=== PATIENT | male | born 1965 | race Two or more races ===

== ENCOUNTER 2024-09-17 12:19 | Day surgery (SDC) | payer OTHER ==
[2024-09-15 08:59] VITALS: BP 155/62
[2024-09-15 09:29] LABS: HEMATOCRIT 42.5 % (39.0-48.0); HEMOGLOBIN 14.8 g/dL (13-16.00); MEAN CELL VOLUME 88.4 fL (80.0-100.00); MEAN CORPUSCULAR HEMOGLOBIN 30.8 pg (27.00-32.0); MEAN CORPUSCULAR HGB CONC 34.8 g/dl (32.0-36.0); PLATELET COUNT 252 K/uL (150-450); RED BLOOD COUNT 4.81 M/uL (4.00-6.00); RED CELL DISTRIBUTION WIDTH 13.4 % (11.5-14.5)
[2024-09-15 09:42] LABS: PH,URINE 6.5 (5.0-8.0); URINE APPEARANCE Clear; URINE BILIRRUBIN Negative (NEGATIVE); URINE BLOOD Negative; URINE COLOR Yellow; URINE GLUCOSE Negative (NEGATIVE); URINE KETONE Negative (NEGATIVE); URINE LEUKOCYTE Negative; URINE NITRATE Negative; URINE PROTEIN Negative (NEGATIVE); URINE UROBILINOGEN 0.2 E.U./dl
[2024-09-15 09:46] LABS: URINE BACTERIA 14.6 uL (0.0-1933); URINE WBC 3.4 uL (0.0-23.2)
[2024-09-15 09:58] LABS: URINE EPITHELIAL CELLS 1.2 uL (0.0-38.8); URINE RBC 0.7 uL (0.0-20.8)
[2024-09-15 10:03] LABS: INR 1.09; PARTIAL THROMBOPLASTIN TIME 27.9 SECONDS (22.0-34.0); PROTHROMBIN TIME 11.8 SECONDS (9.0-11.5)
[2024-09-15 10:50] LABS: ALBUMIN 4.3 gm/dL (3.4-5.0); BILIRUBIN TOTAL 0.86 mg/dL (0.3-1.2); CALCIUM 9.8 mg/dL (8.5-10.1); CREATININE SERUM 0.98 mg/dL (0.70-1.30); GFR 78.28; GLOBULINA 3.1 G/DL (2.4-3.5); POTASSIUM 4.11 mEq/L (3.5-5.1); TOTAL PROTEIN 7.4 gm/dL (6.4-8.2)
[~2024-09-17] VITALS: Ht 167.6 cm; Wt 78.0 kg
[~2024-09-17 12:19] MED LIST: AMLODIPINE-OLM1 EAC3; CLINDAMYCIN PHOSPHATE 150 MG/ML (900mg) IV SCH; COZAAR50 MG PO; CRESTOR40 MG; LIPOFEN150 MG
[2024-09-17] MEDS ORDERED: CLINDAMYCIN PHOSPHATE 150 MG/ML (900mg) ONE (14:51)
[2024-09-17] MEDS ORDERED: KETOROLAC TROMETHAMINE 30 MG VIAL ONE (15:41)
== END 2024-09-17 18:30 | disposition home or self-care (01) ==
LOC: CIR.AMB 12:19
PROVIDERS: ATTEND Orthopaedic Surgery
DX: S46.191A Other injury of muscle, fascia and tendon of long head of biceps, right arm, initial encounter (principal); Z88.0 Allergy status to penicillin; I10 Essential (primary) hypertension; R06.81 Apnea, not elsewhere classified

== ENCOUNTER 2024-09-18 08:16 | Emergency (ER) | payer OTHER ==
[~2024-09-18] VITALS: Ht 167.6 cm; Wt 78.0 kg
[~2024-09-18 08:16] MED LIST changes: -CLINDAMYCIN PHOSPHATE 150 MG/ML (900mg) IV SCH
[2024-09-18] MEDS ORDERED: 0.9 % SODIUM CHLORIDE 1,000 ML IV STA (08:52)
[2024-09-18] MEDS ORDERED: TAMSULOSIN HCL 0.4 MG CAP PO ONE ×2 (08:58→09:00)
[2024-09-18 09:56] LABS: HEMATOCRIT 39.5 % (39.0-48.0); HEMOGLOBIN 13.8 g/dL (13-16.00); MEAN CELL VOLUME 88.8 fL (80.0-100.00); MEAN CORPUSCULAR HEMOGLOBIN 30.9 pg (27.00-32.0); MEAN CORPUSCULAR HGB CONC 34.8 g/dl (32.0-36.0); PLATELET COUNT 237 K/uL (150-450); RED BLOOD COUNT 4.45 M/uL (4.00-6.00); RED CELL DISTRIBUTION WIDTH 13.5 % (11.5-14.5)
[2024-09-18 10:23] LABS: PH,URINE 5.5 (5.0-8.0); URINE APPEARANCE Clear; URINE BILIRRUBIN Negative (NEGATIVE); URINE BLOOD Negative; URINE COLOR Yellow; URINE GLUCOSE Negative (NEGATIVE); URINE KETONE Negative (NEGATIVE); URINE LEUKOCYTE Negative; URINE NITRATE Negative; URINE PROTEIN Trace (NEGATIVE); URINE UROBILINOGEN 0.2 E.U./dl
[2024-09-18 10:28] LABS: URINE BACTERIA 14.6 uL (0.0-1933); URINE CAST 1.47 uL (0.0-1.40); URINE EPITHELIAL CELLS 9.8 uL (0.0-38.8); URINE WBC 6.1 uL (0.0-23.2)
== END 2024-09-18 12:01 | disposition home or self-care (01) ==
LOC: ER 08:17
PROVIDERS: Emergency Medicine
DX: R30.0 Dysuria (principal); I10 Essential (primary) hypertension; Z88.0 Allergy status to penicillin